=== PATIENT | male | born 1995 | race Caucasian/White ===

== ENCOUNTER → 2016-08-08 | Outpatient (CLI) | payer OTHER ==
--- NOTE | 2016-08-08 16:19 | DX ---
Left Ankle Series, 3 Views History: Pain following trauma. Findings: A fracture is not identified. The bone alignment is normal. The ankle mortise has a normal contour. Soft tissue swelling is seen laterally. No radiopaque foreign body is identified. Impression: Negative for fracture.
== END ==
LOC: BMCIMAGING 14:01
PROVIDERS: ATTEND Podiatrist Foot & Ankle Surgery
DX: S93.492A Sprain of other ligament of left ankle, initial encounter (principal); V00.131A Fall from skateboard, initial encounter; Y93.51 Activity, roller skating (inline) and skateboarding